=== PATIENT | female | born 1960 | race Caucasian/White ===

== ENCOUNTER 2019-06-20 07:29 | Day surgery (SDC) | payer BC, OTHER ==
[2019-06-15 16:10] LABS: EOSINOPHILS # (AUTO) 0.1 X10'3 (0-0.9); HEMOGLOBIN 14.2 g/dl (12.0-16.0); LYMPHOCYTES # (AUTO) 3.2 X10'3 (1.1-4.8); MEAN CORPUSCULAR VOLUME 84.1 FL (78-98); MONOCYTES # (AUTO) 0.6 X10'3 (0-0.9); PLATELET COUNT 312 X10'3 (140-440)
[2019-06-15 16:12] LABS: BASOPHILS # (AUTO) 0.3 X10'3 (0-0.2); BASOPHILS % (AUTO) 2.7 % (0-1); EOSINOPHILS % (AUTO) 1.4 % (0-6); HEMATOCRIT 41.6 % (35.0-45.0); LYMPHOCYTES % (AUTO) 34.6 % (21-51); MEAN CORPUSCULAR HEMOGLOBIN 28.8 PG (27.0-31.0); MEAN CORPUSCULAR HGB CONC 34.2 g/dL (33.0-36.5); MEAN PLATELET VOLUME 8.4 FL (7.4-10.4); MONOCYTES % (AUTO) 6.4 % (2-12); NEUTROPHILS # (AUTO) 5.1 X10'3 (1.8-7.7); NEUTROPHILS % (AUTO) 54.9 % (42-75); RED BLOOD COUNT 4.94 X10'6 (4.20-5.60); RED CELL DISTRIBUTION WIDTH 12.8 % (11.5-14.5); WHITE BLOOD COUNT 9.3 X10'3 (4.5-11.0)
[2019-06-15 16:20] LABS: PARTIAL THROMBOPLASTIN TIME 28 SECONDS (22-32)
[2019-06-15 16:21] LABS: ALANINE AMINOTRANSFERASE 34 U/L (12-78); ALBUMIN 4.1 G/DL (3.4-5.0); ALBUMIN/GLOBULIN RATIO 1.1 (1.1-1.5); ALKALINE PHOSPHATASE 86 IU/L (46-116); ANION GAP 10 (8-16); ASPARTATE AMINO TRANSFERASE 17 U/L (10-37); BILIRUBIN,TOTAL 0.5 MG/DL (0.1-1.0); BLOOD UREA NITROGEN 12 MG/DL (7-18); BUN/CREATININE RATIO 12.2 (6.6-38.0); CALCIUM 9.5 MG/DL (8.5-10.1); CHLORIDE 103 MMOL/L (99-107); CREATININE 0.98 MG/DL (0.40-0.90); GLUCOSE 85 MG/DL (70-104); POTASSIUM 3.8 MMOL/L (3.5-5.1); SODIUM 140 MMOL/L (135-145); TOTAL CARBON DIOXIDE 26.7 MMOL/L (24-32); TOTAL PROTEIN 7.8 G/DL (6.4-8.2); eGFR 58 ML/MIN
[2019-06-20] VITALS (12 sets, daily range): BP systolic 106–141; BP diastolic 54–78
[~2019-06-20] VITALS: Ht 165.1 cm; Wt 92.6 kg
[2019-06-20] MEDS ORDERED: normal saline 1,000 ML IV SCH (08:00)
[2019-06-20] MEDS ORDERED: diphenhydrAMINE 25mg capsule PO PRN (08:00)
[2019-06-20] MEDS ORDERED: nitroGLYCERIN 0.4mg SUBLingual tab SL PRN (08:00)
[2019-06-20] MEDS ORDERED: LORazepam 0.5 MG tablet PO PRN (08:00)
[2019-06-20] MEDS ORDERED: GLUC1CAP8 PO (08:21)
[2019-06-20] MEDS ORDERED: PANT-47 PO (08:21)
[2019-06-20] MEDS ORDERED: CHOL200016 PO (08:21)
[2019-06-20] MEDS ORDERED: LEVO100T9 PO (08:21)
[2019-06-20] MEDS ORDERED: CRAN1CAP3 PO (08:21)
[2019-06-20] MEDS ORDERED: ACET-2119 PO (08:21)
[2019-06-20] MEDS ORDERED: MONT4GRA9 PO (08:21)
[2019-06-20] MEDS ORDERED: ALBU6.7H9 INH (08:21)
[2019-06-20] MEDS ORDERED: BUDE10.2 INH (08:21)
[2019-06-20] MEDS ORDERED: midazolam 2 mg/2 ml injection ONE ×2 (09:44→10:11)
[2019-06-20] MEDS ORDERED: ondansetron/PF 4mg/2ml inj ONE (09:44)
[2019-06-20] MEDS ORDERED: LIDOcaine 1% (10mg/ml)w/preservative injection 20ml MDV ONE (09:44)
[2019-06-20] MEDS ORDERED: iohexol 350MG/ML 100ml bottle IV ONE (09:45)
[2019-06-20] MEDS ORDERED: iohexol 350 MG/ML 50ML vial IV ONE (09:45)
[2019-06-20] MEDS ORDERED: ondansetron/PF 4mg/2ml inj IV PRN (11:45)
[2019-06-20] MEDS ORDERED: OXAZEpam 15mg capsule PO PRN (11:45)
[2019-06-20] MEDS ORDERED: proCHLORperazine 10 MG/2 ml inj IV PRN (11:45)
== END 2019-06-20 17:00 | disposition home or self-care (01) ==
LOC: SSTAY O 07:29
PROVIDERS: ATTEND Internal Medicine Cardiovascular Disease
DX: R94.39 Abnormal result of other cardiovascular function study (principal); I25.119 Atherosclerotic heart disease of native coronary artery with unspecified angina pectoris; J44.9 Chronic obstructive pulmonary disease, unspecified; E78.00 Pure hypercholesterolemia, unspecified; E66.9 Obesity, unspecified; Z68.33 Body mass index [BMI] 33.0-33.9, adult; Z88.2 Allergy status to sulfonamides; Z88.8 Allergy status to other drugs, medicaments and biological substances; Z88.5 Allergy status to narcotic agent; Z88.0 Allergy status to penicillin; Z88.1 Allergy status to other antibiotic agents; Z79.01 Long term (current) use of anticoagulants; Z79.899 Other long term (current) drug therapy; R06.02 Shortness of breath
CPT/HCPCS: 36415; 71046; 80053; 83880; 84439; 84443; 84480; 85025; 85610; 85730; 93005; 93458; 99152; 99153; C1769; J1644; J2001; J2250; J2405; J7030; Q0163; Q9967; A4620; A6258; C1760